=== PATIENT | female | born 1995 | race Caucasian/White ===

== ENCOUNTER 2017-09-20 02:47 | Day surgery (SDC) | payer BC ==
[2016-05-26 12:52] VITALS: Ht 170.2 cm; Wt 80.7 kg
[2017-09-20] VITALS (8 sets, daily range): BP systolic 91–108; BP diastolic 51–76
[~2017-09-20] VITALS: Ht 170.2 cm; Wt 80.7 kg
[~2017-09-20 02:47] MED LIST: BIOT250012 PO; CALC500T6 PO; CYA1000 PO; HYDR-317 PO; HYDR-389 PO; IBUP800T37 PO; MILK175T2 PO; MULT1TAB64 PO; NORE0.3516 PO; OMEG500C5 PO; ONDA4TAB PO; PRIMROSE OIL; TUMERIC PO; UBID100C48 PO; ZINC50TA2 PO; ZOLP-1 PO; iud ASDIRECTED
[2017-09-20] MEDS ORDERED: FAMOTIDINE 20 MG TAB ONE (05:13)
[2017-09-20] MEDS ORDERED: fentaNYL CITR 250 MCG/5 ML AMP ONE (08:05)
[2017-09-20] MEDS ORDERED: LIDOCAINE MPF 1% 5 ML VIAL ONE (08:06)
[2017-09-20] MEDS ORDERED: PROPOFOL EMUL(*) 10MG/ML 20 ML 20 ML ONE (08:06)
[2017-09-20] MEDS ORDERED: ONDANSETRON 4 MG/2 ML VIAL ONE (08:06)
[2017-09-20] MEDS ORDERED: DEXAMETHASONE SOD PHOS 10MG/ML ONE (08:06)
[2017-09-20] MEDS ORDERED: HALOPERIDOL LACT 5 MG/ML VIAL IM ONE (08:15)
[2017-09-20 08:52] LABS: PLATELET COUNT, AUTOMATED 266 K/uL (150-450)
[2017-09-20] MEDS ORDERED: LIDOCAINE/SOD BICARB 8.4% SYR ID ONE (09:15)
[2017-09-20] MEDS ORDERED: NORMOSOL R SOLN(*) 1000 ML BAG 1,000 ML IV PRN (09:15)
[2017-09-20] MEDS ORDERED: FAMOTIDINE 20 MG/50 ML PREMIX IVPB ONE (09:15)
[2017-09-20] MEDS ORDERED: MIDAZOLAM 2 MG/2 ML VIAL IVP PRN (09:15)
[2017-09-20] MEDS ORDERED: NS 0.9% 20 ML SDV 20 ML ONE (09:21)
[2017-09-20] MEDS ORDERED: KETOROLAC 30 MG/ML VIAL ONE (10:05)
[2017-09-20] MEDS ORDERED: ROPIVACAINE 0.2% 20 ML VIAL ONE (10:27)
[2017-09-20] MEDS ORDERED: SUGAMMADEX SOD 200 MG/2 ML SDV ONE (10:30)
[2017-09-20] MEDS ORDERED: ROCURONIUM BROM 10 MG/ML 5 ML ONE (10:30)
[2017-09-20] MEDS ORDERED: KETAMINE HCL 200 MG/20 ML MDV ONE (10:30)
[2017-09-20] MEDS ORDERED: LR(*) 1000 ML BAG 1,000 ML IV ONE (12:48)
[2017-09-20] MEDS ORDERED: APAP/HYDROCODONE 325/5 TAB PO PRN (12:50)
[2017-09-20] MEDS ORDERED: fentaNYL CITR 100 MCG/2 ML AMP ONE (12:57)
[2017-09-20] MEDS ORDERED: LOR5/325 PO (12:57)
--- NOTE | 2017-09-20 12:57 | Post Operative Note ---
Operative Note - LOAN ASSISTANT Operative Day Date: Sep 20, 2017 Time: 12:49 Physicians Surgeon: Fidencio Anesthesia: GETA Diagnosis Pre-Op Diagnosis: Endometriosis RLQ abdominal pain Post-Op Diagnosis: same Procedure Findings: [id number] Procedure(s): Bilateral oophorectomy Specimen Removed:(Maybe N/A): bilateral ovaries Complications: none Fluids Fluids: 1100 ml Estimated Blood Loss: minimal Dictated Date OP Note Dictated: Sep 20, 2017 Time OP Note Dictated: 12:50 Copies to: AURA SMITH MD, TRAVIS MD Sep 20, 2017 12:56
--- NOTE | 2017-09-20 12:59 | Short(Outpt) Discharge Summary ---
Discharge Summary Reason for Hosp/Final Diag: (1) Endometriosis, pelvic peritoneum Status: Chronic (2) Abdominal pain Status: Chronic Departure Discharge to: Home, Self Care Discharge Instructions Home Meds Active Scripts Hydrocodone Bit/Acetaminophen (HYDROCODON-ACETAMINOPHEN 5-325) 1 Each Tablet, 1- 2 EACH PO Q4H Y for PAIN, #20 TAB 0 Refills Prov:CM NICOLAS MD 09/20/17 Reported Medications Zolpidem Tartrate (AMBIEN) 5 Mg Tablet, 1 TAB PO QHS, TAB 09/13/17 Calcium Carbonate (CALCIUM) 500 Mg Tablet, 1200 MG PO 05/19/16 Milk Thistle (MILK THISTLE) 175 Mg Tablet, 175 MG PO 05/19/16 Ubidecarenone (COQ-10) 100 Mg Capsule, 200 MG PO, CAPSULE 05/19/16 [Tumeric] No Conflict Check, 1 TAB PO QDAY 12/11/15 Multivitamin (MULTI VITAMIN DAILY) 1 Each Tablet, 1 EACH PO QDAY 12/11/15 Discontinued Reported Medications Venus-3 Fatty Acids (FISH OIL) 500 Mg Capsule.dr, 1400 MG PO 05/19/16 [[place] Oil ] No Conflict Check, 1000 05/19/16 Norethindrone (SEAN) 0.35 Mg Tablet, 0.35 MG PO QDAY 12/11/15 Discontinued Scripts Ibuprofen (IBUPROFEN) 800 Mg Tablet, 800 MG PO Q8H Y for PAIN, #30 TAB 0 Refills Prov:CM NICOLAS MD 05/26/16 Acetaminophen/Hydrocodone (HYDROCODON-ACETAMINOPH 7.5-325) 1 Each Ea, 0 EACH PO Q4H Y for PAIN, #30 EA 0 Refills Prov:CM NICOLAS MD 05/26/16 Hydrocodone/Acetaminophen (Lortab 5-325 mg Tablet) 1 Each Tablet, 1-2 EACH PO Q4H Y for PAIN, #20 TAB 0 Refills Prov:CM NICOLAS MD 12/16/15 Follow up Referrals: [facility] [employer] [facility] - In Two Weeks @ [facility] with Cm Nicolas Md Diet: Regular Activity: As Tolerated, No Exertion Copies to: CM NICOLAS MD, TRAVIS MD Sep 20, 2017 12:58
[2017-09-20] MEDS ORDERED: ESTRADIOL 0.1 MG/24 HR TDSY TD ONE ×2 (13:04→13:10)
[2017-09-20] MEDS ORDERED: ESTR1PAT99 TD (13:58)
--- NOTE | 2017-09-20 17:12 | OPERATIVE REPORT 1 ---
EVENT DATE: September 20, 2017 SURGEON: Cm Nicolas MD ANESTHESIOLOGIST: Power Fitzpatrick MD ANESTHESIA: General endotracheal. PREOPERATIVE DIAGNOSES 1. Endometriosis. 2. Right lower quadrant abdominal pain. POSTOPERATIVE DIAGNOSES 1. Endometriosis. 2. Right lower quadrant abdominal pain. PROCEDURE PERFORMED Laparoscopic bilateral oophorectomy. ESTIMATED BLOOD LOSS Minimal. FLUIDS IV crystalloid 1100 mL INDICATIONS This is a 21-year-old patient with an established diagnosis of endometriosis, having previously had a hysterectomy. She had been previously been treated with Lupron as well, all of which improved her pain complication initially; however, it has now returned. She reports her having right lower quadrant cyclic pain similar to the endometriosis pain and cyclic in its intensity. It is usually always there, but progressively gets worse and then eases up later in what would be her cycle. We have attempted conservative management, and I have reviewed this with her again. She understands that the only way to retain her ovaries and still manage her endometriosis pain is through conservative treatment. She also understands that there is a real possibility that her pain may persist despite the procedure; however, she desires permanent removal of her ovaries so she does not have to deal with the cyclic hormonal issues. We reviewed in detail the consequences of removing her ovaries at her young age, which she understands fully and still desires to proceed. She is prepared to undergo hormone replacement therapy as an alternative to retaining her ovaries. Again, conservative options were discussed and offered, but declined. PROCEDURE IN DETAIL The patient was brought to the operating room with a working IV and placed in the dorsal supine position. She was placed under general endotracheal anesthesia by Dr. Fitzpatrick and prepped and draped in the usual sterile fashion. Using a knife, a 5 mm stab incision was made in the umbilicus. The anterior abdominal wall was elevated, and a Veress needle was passed through this incision into the abdomen. A pneumoperitoneum was created to an intra- abdominal pressure of 20 mmHg. This was reduced to 15 mmHg once all ports had been placed. The Veress needle was removed, and a 5 mm bladeless trocar was passed through this incision into the abdomen under direct visualization with the scope and without incident. An additional 5 mm port was placed in the left lower quadrant under direct visualization without complication. At the suprapubic site, an 11 mm port was placed under direct visualization with the scope and without incident. Through these ports, instruments were passed to perform the surgery. The left ovary was grasped and put on medial stretch. The ureter was found peristalsing well below the operative area. The IP ligament fully extended and then exposed was grasped with a Gyrus device, cauterized, and transected. The ovarian attachment was further dissected away from its pelvic attachment using the Gyrus device and without incident. The left ovary was set in the posterior cul-de-sac. The right ovary in a likewise fashion was grasped and put on medial stretch, exposing the IP ligament. The ureter was observed well below. The IP was cauterized and transected, and the ovary was dissected off. An Endo Pouch was passed through the 11 mm port. The left ovary was placed in the Endo Pouch and taken out through the 11 mm port. It was sent to Pathology. The left ovary was in a likewise fashion grasped and taken out through the suprapubic port with an Endo Pouch. The remaining fascial incision at the 11 mm port was closed with an 0 Vicryl using an Endo Close device. The procedure was then terminated. The pelvis was completely dry without evidence of bleeding. No visible complications. The pneumoperitoneum was suctioned out. All instruments were removed. The skin incisions were repaired using 4-0 Monocryl simple subdermal and covered with Dermabond skin adhesive. She tolerated the procedure well. Sponge, lap, needle , and instrument counts were all correct times three. VIOLET
[2017-09-22] MEDS ORDERED: FAMOTIDINE 20 MG TAB PO ONE (07:30)
[2017-09-22] MEDS ORDERED: NORMOSOL R SOLN(*) 1000 ML BAG 1,000 ML IV PRN (07:30)
[2017-09-22] MEDS ORDERED: MIDAZOLAM 2 MG/2 ML VIAL IVP PRN (07:30)
[2017-09-22] MEDS ORDERED: LIDOCAINE/SOD BICARB 8.4% SYR ID ONE (07:30)
== END 2017-09-20 14:05 | disposition home or self-care (01) ==
LOC: OR 02:47
PROVIDERS: ATTEND Obstetrics & Gynecology
DX: N80.3 Endometriosis of pelvic peritoneum (principal); R10.31 Right lower quadrant pain
CPT/HCPCS: 36415; 58661; 85025; 88305; J1100; J1630; J1885; J2001; J2250; J2405; J2704; J2795; J3010; J3490; J7050

== ENCOUNTER → 2018-04-26 | Outpatient (CLI) | payer BC ==
[2016-05-26 12:52] VITALS: BMI 25.1
[~2018-04-26] MED LIST changes: +ESTR1PAT99 TD; +LOR5/325 PO
--- NOTE | 2018-04-26 17:18 | RADIOLOGY IMAGING REPORT ---
FACILITY: [facility] - [place] PATIENT NAME: Sarahi Aguilar : 1995 MR: [id number] V: [id number] EXAM DATE: [id number] ORDERING PHYSICIAN: VISHAL PIMENTEL TECHNOLOGIST: [place] [facility] [place] Patient: Sarahi Aguilar : 1995 Visit/Account:[id number] Date of Sevice: 04/26/2018 Exam type: FOOT 2 VIEW LEFT History: Injury six days ago Comparison: None. Findings: Two views of the left foot demonstrates no gross evidence of acute fracture or dislocation. No radia l opaque soft tissue foreign body seen IMPRESSION: 1. No gross evidence of acute fracture or dislocation involving the left foot on this limited two-vi ew study. Patient has continued symptoms follow-up imaging recommended Report Dictated By: Hamida Trevino MD at 04/26/2018 5:13 PM Report E-Signed By: Hamida Trevino MD at 04/26/2018 5:15 PM WSN:[email or web address]
== END ==
LOC: RAD 16:50
PROVIDERS: ATTEND Physician Assistant Medical
DX: M79.672 Pain in left foot (principal)